=== PATIENT | male | born 1970 | race Caucasian/White ===

== ENCOUNTER 2017-01-30 10:18 | Emergency (ER) | payer OTHER | END 2017-01-31 08:55 | disposition other institution (70) | LOC: ER 10:18 | DX: L03.114 Cellulitis of left upper limb (principal); R50.9 Fever, unspecified; F32.9 Major depressive disorder, single episode, unspecified; F41.9 Anxiety disorder, unspecified; I10 Essential (primary) hypertension | CPT/HCPCS: 36415; 96365; 96366; 96367; 96375; 96376; J3370; Q9967 ==